=== PATIENT | male | born 1990 | race Caucasian/White ===

== ENCOUNTER 2024-09-15 20:34 | Emergency (ER) | payer SELFPAY ==
--- NOTE | 2024-09-15 20:36 | ED_ITS ---
Discharge Plan Disposition Patient Disposition: Home, Self-Care Condition: Good Prescriptions Prescriptions: New methocarbamol 1,000 mg tablet 1,000 mg PO Q8H PRN (Reason: neck pain) Qty: 15 0RF Referrals Follow up/Referrals: Nila Dejesus [Primary Care Provider] - See instructions Activity Restrictions/Add. Instructions Additional Instructions/Restrictions: As we discussed I have sent a prescription in for a muscle relaxer to your pharmacy. I recommend taking 1000 mg of Tylenol and 800 mg of Motrin either together or staggered 4 hours apart. Please follow-up closely with your spine surgeon. If you have any continued new or worsening signs or symptoms follow-up with your PCP return to the ER as needed. Clinical Impressions Clinical Impression: Cervicalgia Print Language Print Language: Japanese Discharge ED Provider: Kamron Zendejas General Adult HPI <FLAKITA Edge - Last Filed: 09/15/24 21:59> General Chief complaint: PAIN Stated complaint: severe pain in right side of neck Time Seen by Provider: 09/15/24 20:36 History of Present Illness HPI narrative: Patient presents for evaluation of severe neck pain. Patient has a self- reported history of previous broken vertebra in his neck and he is unsure which ones. Patient is [employer]. This has been going on for at least 2 to 3 years with intermittent discomfort. He recently went to see a spinal specialist in [place] this week and has had a pulmonary round of workup and imaging for treatment. However since Wednesday he has been having severe midline cervical spine pain that radiates into his right neck. He has no new trauma reports no new injury. He was seen by the PCP today and given a shot of steroids that did not help. He reports no loss of motor or sensory no fever chills chest pain shortness of breath hemoptysis hematochezia melena hematemesis nausea vomiting diarrhea difficulty swallowing difficulty breathing. Related Data Previous Rx's ?Medication ?Instructions ?Recorded methocarbamol 1,000 mg tablet 1,000 mg PO Q8H PRN neck pain #15 09/15/24 tabs Allergies Allergy/AdvReac Type Severity Reaction Status Date / Time No Known Allergies Allergy Verified 09/15/24 20:52 PFSH <FLAKITA Edge - Last Filed: 09/15/24 21:59> PFS Disclaimer: The information contained in this section may have been updated after the p atyonathan was seen, as this information can be updated by other users. Social History (Updated 09/15/24 @ 21:59 by FLAKITA Edge) Smoking Status: Never smoker alcohol intake: never current occupational status: other details: [employer] Travel in the last 8 weeks: None Have you lived/traveled outside US in past 30 days?: No Contact w/someone who lives/traveled outside US past 30 days?: No Exposure to someone with infectious disease in past 14 days?: No Do you have a fever (greater than 100.4 F or 38 C)?: No Have you tested positive for COVID-19: No Exposed to someone with COVID-19 in past 14 days?: No Do you have a sore throat?: No Do you have a cough?: No Do you have any weakness?: No Do you have any diarrhea?: No Are you experiencing any unusual bleeding?: No Do you have any muscle aches/pain?: No Do you have any abdominal pain?: No Are you experiencing loss of taste or smell?: No <FLAKITA Edge - Last Filed: 09/15/24 21:59> ROS Obtained: Yes Systems reviewed as appropriate & no additional complaints except as documented Physical Exam <FLAKITA Edge - Last Filed: 09/15/24 21:59> General General appearance: alert and in no apparent distress Neck Neck exam: Present lymphadenopathy Respiratory Respiratory exam: Present normal lung sounds bilaterally Cardiovascular Cardiovascular exam: Present regular rate Neurological Exam Neurological exam: Present alert and oriented X3 Medical Decision Making <FLAKITA Edge - Last Filed: 09/15/24 21:59> Medical Records Medical records reviewed: Yes I reviewed the patient's medical records. Screening: Per USPSTF and CDC recommendations, given the prevalence of disease in our region, it is our hospital?s policy to screen for HIV and viral Hepatitis for all patients aged 18 and over and those with ongoing risk factors. Brandt Inquiry Pt receiving controlled substance: No Vital Signs: 09/15/24 20:45 09/15/24 21:45 Temperature 97.3 F L Temperature Source Temporal Artery Scan Pulse Rate 70 Pulse Rate [Right] 89 Respiratory Rate 18 Blood Pressure 129/81 Blood Pressure [Left Arm] 99/63 L Blood Pressure Mean [Left Arm] 75 Blood Pressure Position [Left Arm] Sitting 02 Sat by Pulse Oximetry 99 97 Oxygen Delivery Method Room Air Orders (Tests/Meds): ED MEDICATIONS Discontinued Medications Generic Name Dose Route Start Last Admin Trade Name Lionel PRN Reason Stop Dose Admin Acetaminophen 1,000 mg 09/15/24 20:45 09/15/24 21:10 Acetaminophen 500mg Tab PO 09/15/24 20:46 1,000 mg ONCE ONE Administration Dexamethasone Sodium Phosphate 10 mg 09/15/24 20:45 09/15/24 21:06 Dexamethasone 4mg/Ml 5ml Mdv IV 09/15/24 20:46 10 mg ONCE ONE Administration Diazepam 5 mg 09/15/24 20:45 09/15/24 21:09 Diazepam 10mg/2ml Syringe IV 09/15/24 20:46 5 mg ONCE ONE Administration Ketorolac Tromethamine 15 mg 09/15/24 20:45 09/15/24 21:07 Ketorolac 30mg/Ml Vial IV 09/15/24 20:46 15 mg ONCE ONE Administration Lidocaine 1 each 09/15/24 20:45 09/15/24 21:10 Lidocaine 5% Transdermal Patch TD 09/15/24 20:46 1 each ONCE ONE Administration ORDERS Category Date Time Status CT cervical spine wo con Stat Cat Scan 09/15/24 20:45 Completed Medical Decision Narrative: In summary patient is a 34-year-old [employer] male who presents to the emergency department for evaluation of neck pain. Patient is initially with a blood pressure of 99/63 pulse 89 with normal sinus rhythm on the bedside monitor respiratory rate is 18 upon arrival, afebrile. Physical exam is remarkable for tenderness to palpation in the midline around C7 but there is no evidence of ecchymosis edema swelling erythema palpable bony deformity. Neck is supple w ithout lymphadenopathy oropharynx is patent with no evidence of erythema or exudate. Patient has no focal neurologic deficits is moving all 4 extremities ambulating without assistance.. Differential diagnosis includes cervicalgia versus occult fracture. Initial workup will be conducted with CT scan noncontrast of the cervical spine. Initial interventions include Tylenol Toradol Decadron Lidoderm patch and Valium. Initial workup reviewed by me and my informal interpretation of his imaging shows no evidence of acute bony injury or abnormality.. Upon repeat evaluation had significant reduction in his discomfort and via shared decision making discussion patient feels comfortable going home with close follow-up with his spine surgeon.. Given this patient is appropriate for discharge with a prescription for prednisone and Robaxin along with supportive and symptomatic care with Tylenol and ibuprofen. <Kamron Zendejas MD - Last Filed: 09/15/24 22:26> Vital Signs: 09/15/24 20:45 09/15/24 21:45 Temperature 97.3 F L Temperature Source Temporal Artery Scan Pulse Rate 70 Pulse Rate [Right] 89 Respiratory Rate 18 Blood Pressure 129/81 Blood Pressure [Left Arm] 99/63 L Blood Pressure Mean [Left Arm] 75 Blood Pressure Position [Left Arm] Sitting 02 Sat by Pulse Oximetry 99 97 Oxygen Delivery Method Room Air Orders (Tests/Meds): ED MEDICATIONS Discontinued Medications Generic Name Dose Route Start Last Admin Trade Name Freq PRN Reason Stop Dose Admin Acetaminophen 1,000 mg 09/15/24 20:45 09/15/24 21:10 Acetaminophen 500mg Tab PO 09/15/24 20:46 1,000 mg ONCE ONE Administration Dexamethasone Sodium Phosphate 10 mg 09/15/24 20:45 09/15/24 21:06 Dexamethasone 4mg/Ml 5ml Mdv IV 09/15/24 20:46 10 mg ONCE ONE Administration Diazepam 5 mg 09/15/24 20:45 09/15/24 21:09 Diazepam 10mg/2ml Syringe IV 09/15/24 20:46 5 mg ONCE ONE Administration Ketorolac Tromethamine 15 mg 09/15/24 20:45 09/15/24 21:07 Ketorolac 30mg/Ml Vial IV 09/15/24 20:46 15 mg ONCE ONE Administration Lidocaine 1 each 09/15/24 20:45 09/15/24 21:10 Lidocaine 5% Transdermal Patch TD 09/15/24 20:46 1 each ONCE ONE Administration ORDERS Category Date Time Status CT cervical spine wo con Stat Cat Scan 09/15/24 20:45 Completed Medical Decision Narrative: In summary patient is a 34-year-old [employer] male who presents to the emergency department for evaluation of neck pain. Patient is initially with a blood pressure of 99/63 pulse 89 with normal sinus rhythm on the bedside monitor respiratory rate is 18 upon arrival, afebrile. Physical exam is remarkable for tenderness to palpation in the midline around C7 but there is no evidence of ecchymosis edema swelling erythema palpable bony deformity. Neck is supple without lymphadenopathy oropharynx is patent with no evidence of erythema or exudate. Patient has no focal neurologic deficits is moving all 4 extremities ambulating without assistance.. Differential diagnosis includes cervicalgia versus occult fracture. Initial workup will be conducted with CT scan noncontrast of the cervical spine. Initial interventions include Tylenol Toradol Decadron Lidoderm patch and Valium. Initial workup reviewed by me and my informal interpretation of his imaging shows no evidence of acute bony injury or abnormality.. Upon repeat evaluation had significant reduction in his discomfort and via shared decision making discussion patient feels comfortable going home with close follow-up with his spine surgeon.. Given this patient is appropriate for discharge with a prescription for prednisone and Robaxin along with supportive and symptomatic care with Tylenol and ibuprofen. I was consulted by the MARGARET, and we discussed the complexity of the problems being addressed. I approved the treatment and management plan for this patient's care in the emergency department, thus performing a substantive portion of the medical decision making. Kamron Zendejas MD Critical Care <FLAKITA Edge - Last Filed: 09/15/24 21:59> Critical Care Time Critical Care Time: No
[2024-09-15 20:45] VITALS: BP 99/63; PULSE 89; RESP 18; TEMP 36.3; O2SAT 99; BMI 25.8
--- NOTE | 2024-09-15 20:45 | CT_ITS ---
PROCEDURE INFORMATION: Exam: CT Cervical Spine Without Contrast Exam date and time: 09/15/2024 9:02 PM Age: 34 years old Clinical indication: Neck pain; Additional info: Midline neck pain around c7/t1 TECHNIQUE: Imaging protocol: Computed tomography of the cervical spine without contrast. Radiation optimization: All CT scans at this facility use at least one of these dose optimization techniques: automated exposure control; mA and/or kV adjustment per patient size (includes targeted exams where dose is matched to clinical indication); or iterative reconstruction. COMPARISON: No relevant prior studies available. FINDINGS: Bones: No acute fracture. Normal alignment. No significant disc bulge or herniation. No severe spinal canal stenosis. No significant neural foraminal narrowing. Lungs: Unremarkable. Soft tissues: Unremarkable. IMPRESSION: No acute findings.
[2024-09-15] MEDS: DEXAMETHASONE 4MG/ML 5ML MDV 10 MG IV (21:06)
[2024-09-15] MEDS: KETOROLAC 30MG/ML VIAL 15 MG IV (21:07)
[2024-09-15] MEDS: diazePAM 10MG/2ML SYRINGE 5 MG IV (21:09)
[2024-09-15] MEDS: LIDOCAINE 5% TRANSDERMAL PATCH 1 EACH TD (21:10)
[2024-09-15] MEDS: ACETAMINOPHEN 500MG TAB 1000 MG PO (21:10)
[2024-09-15 21:45] VITALS: BP 129/81; PULSE 70; O2SAT 97
[2024-09-15 22:29] VITALS: BP 128/80; PULSE 70; RESP 16; TEMP 37.2; O2SAT 98
== END 2024-09-15 22:30 | disposition home or self-care (01) ==
PROVIDERS: Emergency Provider Emergency Medicine; PCP Nurse Practitioner Family
DX: M54.2 Cervicalgia (principal)
CPT/HCPCS: 72125; 96374; 96375; 99284; J1100; J1885; J3360